=== PATIENT | female | born 1995 | race Caucasian/White ===

== ENCOUNTER → 2021-01-27 | Outpatient (CLI) | payer OTHER ==
[~2021-01-27] MED LIST: BUTA-198 PO; BUTA1TAB48 PO; ESCI10TA16 PO; IBUP-1022 PO; MELO15TA28 PO; ONDA8TAB10 PO; PANT40TA29 PO; TRAM50TA2 PO
[2021-01-27 16:00] LABS: BASO % 0.3 % (0.0-1.0); EOS % 0.2 % (0.0-3.0); HEMATOCRIT 44.2 % (36.0-47.0); HEMOGLOBIN 15.4 g/dl (12.0-15.5); LYMPH # 1.7 10^3/uL (1.5-5.0); LYMPH % 19.5 % (24.0-44.0); MEAN CORPUSCULAR HEMOGLOBIN 30.7 pg (27.0-33.0); MEAN CORPUSCULAR HGB CONC 34.8 g/dl (32.0-36.5); MEAN CORPUSCULAR VOLUME 88.2 fl (80.0-96.0); MONO # 0.4 10^3/uL (0.0-0.8); MONO % 4.4 % (2.0-8.0); NEUTROPHILS # 6.7 10^3/uL (1.5-8.5); NEUTROPHILS % 75.3 % (36.0-66.0); PLATELET COUNT, AUTOMATED 282 10^3/uL (150-450); RED BLOOD COUNT 5.01 10^6/uL (4.00-5.40); WHITE BLOOD COUNT 8.9 10^3/uL (4.0-10.0)
[2021-01-27 16:26] LABS: ALT/SGPT 31 U/L (12-78); BILIRUBIN,TOTAL 0.4 MG/DL (0.2-1.0); CREATININE FOR GFR 0.55 MG/DL (0.55-1.30); GLOMERULAR FILTRATION RATE > 60.0 (>60); GLUCOSE CHALLENGE TEST 1 HOUR 80 MG/DL (LESS THAN 140); LDH LACTATE DEHYDROGENASE 186 U/L (84-246); THYROID STIMULATING HORMONE 0.481 uIU/ML (0.358-3.740); URIC ACID 3.5 MG/DL (2.6-6.0)
[2021-01-27 16:55] LABS: TOTAL PROTEIN,RANDOM URINE 44.8 MG/DL (0.0-12.0)
[2021-01-27 17:05] LABS: HEPATITIS C VIRUS ABY INDEX < 0.0 INDEX (<0.8); HIV 1&2 SCREEN CENTAUR NEGATIVE (NEGATIVE)
[2021-01-27 17:21] LABS: GC DNA AMPLIFICATION NEGATIVE (NEGATIVE)
[2021-01-27 17:23] LABS: HEMOGLOBIN A1c 4.9 %
== END ==
LOC: M PLALAB 11:56
PROVIDERS: ATTEND Advanced Practice Midwife
DX: Z36.89 Encounter for other specified antenatal screening (principal); Z3A.11 11 weeks gestation of pregnancy

== ENCOUNTER → 2021-01-30 | Outpatient (REF) | payer OTHER | LOC: M SFHCWAGY 17:20 | PROVIDERS: ATTEND Advanced Practice Midwife | DX: O99.212 Obesity complicating pregnancy, second trimester (principal) ==

== ENCOUNTER → 2021-03-14 | Outpatient (CLI) | payer OTHER ==
--- NOTE | 2021-03-14 10:33 | REP ---
INDICATION: ANATOMY. COMPARISON: None. TECHNIQUE: Transabdominal scanning FINDINGS: Multiple ultrasonographic images of the gravid uterus shows a single living intrauterine gestation in variable positions. Doppler interrogation of the heart shows a heart rate of 153 beats per minute. The placenta is anterior and not low-lying. The cervix measures 3.8 cm in length and is closed. The subjective amniotic fluid volume is within normal limits. BPD: 5 cm 21 weeks 1 day HC: 19.3 cm 21 weeks 4 day AC: 15.8 cm 20 weeks 6 days FL: 3.9 cm 22 weeks 3 days The estimated weight is 434 g which is at the 44th percentile for a 21 week 4 day gestational age. anatomical structures seen to be unremarkable are as follows: Thalami, cavum septum pellucidum, cerebellum, cisterna magna, spine, urinary bladder, four-chamber heart, left ventricular outflow tract, stomach, and upper lip. Structures suboptimally visualized are as follows: Kidneys, cord insertion, three-vessel umbilical cord, right ventricular outflow tract, and extremities. IMPRESSION: Single living intrauterine gestation as described above with an estimated gestational age of 21 weeks 5 days via composite criteria and an estimated date of delivery of 07/20/2021 by today's exam. No anomalies were detected, however, I recommend a follow-up examination to better visualize those structures suboptimally seen today as described above. <Electronically signed by Jeremy Pires > 03/14/21 1590
== END ==
LOC: M WHC 08:31
PROVIDERS: ATTEND Advanced Practice Midwife
DX: Z36.3 Encounter for antenatal screening for malformations (principal); O99.212 Obesity complicating pregnancy, second trimester; Z3A.21 21 weeks gestation of pregnancy

== ENCOUNTER → 2021-06-10 | Outpatient (CLI) | payer OTHER ==
[2021-06-10 18:05] LABS: MEAN CORPUSCULAR HEMOGLOBIN 28.6 pg (27.0-33.0); MEAN CORPUSCULAR HGB CONC 32.4 g/dl (32.0-36.5); MEAN CORPUSCULAR VOLUME 88.3 fl (80.0-96.0); PLATELET COUNT, AUTOMATED 222 10^3/uL (150-450); RED BLOOD COUNT 4.19 10^6/uL (4.00-5.40); WHITE BLOOD COUNT 7.3 10^3/uL (4.0-10.0)
== END ==
LOC: M PLALAB 14:16
PROVIDERS: ATTEND Advanced Practice Midwife
DX: Z36.89 Encounter for other specified antenatal screening (principal); Z3A.24 24 weeks gestation of pregnancy

== ENCOUNTER → 2021-06-20 | Outpatient (CLI) | payer OTHER ==
[~2021-06-20] MED LIST changes: +ACET500T15 PO; +ESGI1CAP PO; +ONDA-84 PO; -ONDA8TAB10 PO; +PRENTAB9 PO; +SERT-141 PO
[2021-06-20 13:18] LABS: HEMATOCRIT 36.9 % (36.0-47.0); HEMOGLOBIN 12.1 g/dl (12.0-15.5); MEAN CORPUSCULAR HEMOGLOBIN 29.2 pg (27.0-33.0); MEAN CORPUSCULAR HGB CONC 32.8 g/dl (32.0-36.5); MEAN CORPUSCULAR VOLUME 89.1 fl (80.0-96.0); PLATELET COUNT, AUTOMATED 313 10^3/uL (150-450); RED BLOOD COUNT 4.14 10^6/uL (4.00-5.40); WHITE BLOOD COUNT 8.4 10^3/uL (4.0-10.0)
[2021-06-20 13:52] LABS: ALBUMIN 2.6 GM/DL (3.2-5.2); ALT/SGPT 27 U/L (12-78); BILIRUBIN,TOTAL 0.7 MG/DL (0.2-1.0); BLOOD UREA NITROGEN 6 MG/DL (7-18); CARBON DIOXIDE LEVEL 24 MEQ/L (21-32); CHLORIDE LEVEL 109 MEQ/L (98-107); CREATININE FOR GFR 0.68 MG/DL (0.55-1.30); GLOMERULAR FILTRATION RATE > 60.0 (>60); GLUCOSE, FASTING 76 MG/DL (70-100); POTASSIUM SERUM 4.5 MEQ/L (3.5-5.1); SODIUM LEVEL 140 MEQ/L (136-145)
[2021-06-20 14:05] LABS: TOTAL PROTEIN,RANDOM URINE 105.5 MG/DL (0.0-12.0)
== END ==
LOC: M PLALAB 10:54
PROVIDERS: ATTEND Obstetrics & Gynecology
DX: O16.3 Unspecified maternal hypertension, third trimester (principal); Z3A.00 Weeks of gestation of pregnancy not specified

== ENCOUNTER 2021-06-21 18:31 | Outpatient (CLI) | payer OTHER ==
[~2021-06-21] VITALS: Ht 160 cm; Wt 91.5 kg
[~2021-06-21 18:31] MED LIST changes: -ACET500T15 PO; -ESGI1CAP PO; -PRENTAB9 PO; -SERT-141 PO
[2021-06-21 18:58] VITALS: BP 140/77
[2021-06-21] MEDS ORDERED: ACET500T15 PO (19:06)
[2021-06-21] MEDS ORDERED: PRENTAB9 PO (19:06)
[2021-06-21] MEDS ORDERED: SERT-141 PO (19:08)
[2021-06-21] MEDS ORDERED: HOME MED LIST COMPLETE! XX SCH (19:10)
[2021-06-21 19:34] VITALS: BP 129/78
[2021-06-21] MEDS ORDERED: FIORICET TAB PO ONE (20:00)
[2021-06-21 20:10] VITALS: BP 133/71
[2021-06-21 20:15] LABS: HEMATOCRIT 34.6 % (36.0-47.0); HEMOGLOBIN 11.3 g/dl (12.0-15.5); MEAN CORPUSCULAR HEMOGLOBIN 28.5 pg (27.0-33.0); MEAN CORPUSCULAR HGB CONC 32.7 g/dl (32.0-36.5); MEAN CORPUSCULAR VOLUME 87.2 fl (80.0-96.0); PLATELET COUNT, AUTOMATED 290 10^3/uL (150-450); RED BLOOD COUNT 3.97 10^6/uL (4.00-5.40); WHITE BLOOD COUNT 7.7 10^3/uL (4.0-10.0)
[2021-06-21 20:41] VITALS: BP 115/62
[2021-06-21 20:49] LABS: ALBUMIN 2.4 GM/DL (3.2-5.2); ALT/SGPT 20 U/L (12-78); BILIRUBIN,TOTAL 0.6 MG/DL (0.2-1.0); BLOOD UREA NITROGEN 6 MG/DL (7-18); CALCIUM LEVEL 8.8 MG/DL (8.5-10.1); CARBON DIOXIDE LEVEL 24 MEQ/L (21-32); CHLORIDE LEVEL 107 MEQ/L (98-107); CREATININE FOR GFR 0.61 MG/DL (0.55-1.30); GLOMERULAR FILTRATION RATE > 60.0 (>60); GLUCOSE, FASTING 73 MG/DL (70-100); LDH LACTATE DEHYDROGENASE 194 U/L (84-246); POTASSIUM SERUM 4.6 MEQ/L (3.5-5.1); SODIUM LEVEL 140 MEQ/L (136-145); TOTAL PROTEIN 5.9 GM/DL (6.4-8.2); URIC ACID 4.9 MG/DL (2.6-6.0)
[2021-06-21] MEDS ORDERED: ESGI1CAP PO (21:18)
== END 2021-06-21 21:18 | disposition home or self-care (01) ==
LOC: M LDO 18:31
PROVIDERS: ATTEND Obstetrics & Gynecology
DX: O60.03 Preterm labor without delivery, third trimester (principal); O26.893 Other specified pregnancy related conditions, third trimester; R51.9 Headache, unspecified; Z3A.35 35 weeks gestation of pregnancy

== ENCOUNTER 2021-06-30 16:27 | Outpatient (CLI) | payer OTHER ==
[2021-06-30] VITALS (7 sets, daily range): BP systolic 101–141; BP diastolic 56–76
[~2021-06-30] VITALS: Ht 160 cm; Wt 90.6 kg
[~2021-06-30 16:27] MED LIST changes: +ACET500T15 PO; +ESGI1CAP PO; +PRENTAB9 PO; +SERT-141 PO
[2021-06-30] MEDS ORDERED: HOME MED LIST COMPLETE! XX SCH (18:45)
== END 2021-06-30 23:34 | disposition home or self-care (01) ==
LOC: M LDO 16:27
PROVIDERS: ATTEND Advanced Practice Midwife
DX: O60.03 Preterm labor without delivery, third trimester (principal); O99.343 Other mental disorders complicating pregnancy, third trimester; F32.A Depression, unspecified; F41.9 Anxiety disorder, unspecified; Z3A.37 37 weeks gestation of pregnancy

== ENCOUNTER 2021-07-05 21:36 | Outpatient (CLI) | payer OTHER ==
[~2021-07-05] VITALS: Ht 160 cm; Wt 91.0 kg
[2021-07-05 21:57] VITALS: BP 166/98
[2021-07-05] MEDS ORDERED: HOME MED LIST COMPLETE! XX SCH (22:05)
[2021-07-05 22:13] VITALS: BP 176/85
[2021-07-05 22:42] VITALS: BP 111/73
[2021-07-05 22:51] LABS: CREATININE,RANDOM URINE 84.4 MG/DL; TOTAL PROTEIN,RANDOM URINE 27.4 MG/DL (0.0-12.0)
[2021-07-05 23:02] VITALS: BP 144/79
[2021-07-05 23:13] LABS: HEMATOCRIT 34.3 % (36.0-47.0); HEMOGLOBIN 11.1 g/dl (12.0-15.5); MEAN CORPUSCULAR HEMOGLOBIN 27.2 pg (27.0-33.0); MEAN CORPUSCULAR HGB CONC 32.4 g/dl (32.0-36.5); MEAN CORPUSCULAR VOLUME 84.1 fl (80.0-96.0); PLATELET COUNT, AUTOMATED 260 10^3/uL (150-450); RED BLOOD COUNT 4.08 10^6/uL (4.00-5.40); WHITE BLOOD COUNT 10.2 10^3/uL (4.0-10.0)
[2021-07-05 23:28] LABS: ALT/SGPT 14 U/L (12-78); BILIRUBIN,TOTAL 0.3 MG/DL (0.2-1.0); CREATININE FOR GFR 0.61 MG/DL (0.55-1.30); GLOMERULAR FILTRATION RATE > 60.0 (>60); LDH LACTATE DEHYDROGENASE 190 U/L (84-246); URIC ACID 5.7 MG/DL (2.6-6.0)
[2021-07-05 23:30] VITALS: BP 125/81
[2021-07-05 23:46] VITALS: BP 134/85
[2021-07-06] MEDS ORDERED: CALCIUM CARBONATE 500 MG CHEW U/D PO ONE
[2021-07-06 00:01] VITALS: BP 142/80
[2021-07-06 00:15] VITALS: BP 136/81
[2021-07-06 00:30] VITALS: BP 132/73
[2021-07-06 00:45] VITALS: BP 131/81
== END 2021-07-06 01:10 | disposition home or self-care (01) ==
LOC: M LDO 21:36
PROVIDERS: ATTEND Obstetrics & Gynecology
DX: O47.1 False labor at or after 37 completed weeks of gestation (principal); Z3A.37 37 weeks gestation of pregnancy; O26.893 Other specified pregnancy related conditions, third trimester; R03.0 Elevated blood-pressure reading, without diagnosis of hypertension; Z88.2 Allergy status to sulfonamides

== ENCOUNTER → 2021-07-11 | Outpatient (REF) | payer OTHER | LOC: M SFHCWAGY 14:36 | PROVIDERS: ATTEND Advanced Practice Midwife | DX: R39.11 Hesitancy of micturition (principal); R10.9 Unspecified abdominal pain ==

== ENCOUNTER 2021-07-15 18:34 | Inpatient (IN) | payer OTHER ==
[2021-07-15] VITALS (9 sets, daily range): BP systolic 102–149; BP diastolic 61–98
[~2021-07-15] VITALS: Ht 160 cm; Wt 91.8 kg
[2021-07-15] MEDS ORDERED: HOME MED LIST COMPLETE! XX SCH (19:05)
[2021-07-15] MEDS ORDERED: miSOPROStol 50MCG 1/2 TABLET PO SCH (19:30)
[2021-07-15] MEDS ORDERED: LIDOCAINE 1% MDV 20ML VIAL INFIL PRN (19:30)
[2021-07-15] MEDS ORDERED: METHYLERGONOVINE MALEATE 0.2 MG/ML VIAL (J2210) IM PRN (19:30)
[2021-07-15] MEDS ORDERED: CARBOPROST TROMETHAMINE 250 MCG/ML AMP IM PRN (19:30)
[2021-07-15] MEDS ORDERED: OXYTOCIN DRIP 30 UNITS in IV 1 EA IV PRN (19:30)
[2021-07-15] MEDS ORDERED: TRANEXAMIC ACID INJection 1,000 MG in NS 100 ML IV PRN (19:30)
[2021-07-15 20:13] LABS: HEMATOCRIT 35.4 % (36.0-47.0); HEMOGLOBIN 11.6 g/dl (12.0-15.5); MEAN CORPUSCULAR HEMOGLOBIN 26.7 pg (27.0-33.0); MEAN CORPUSCULAR HGB CONC 32.8 g/dl (32.0-36.5); MEAN CORPUSCULAR VOLUME 81.4 fl (80.0-96.0); PLATELET COUNT, AUTOMATED 266 10^3/uL (150-450); RED BLOOD COUNT 4.35 10^6/uL (4.00-5.40); WHITE BLOOD COUNT 12.3 10^3/uL (4.0-10.0)
[2021-07-15] MEDS: ONDANSETRON 4MG/2ML VIAL IV PRN (20:16)
[2021-07-15 20:35] LABS: TOTAL PROTEIN,RANDOM URINE 79.5 MG/DL (0.0-12.0)
[2021-07-15 20:46] LABS: ALT/SGPT 13 U/L (12-78); BILIRUBIN,TOTAL 0.4 MG/DL (0.2-1.0); CREATININE FOR GFR 0.75 MG/DL (0.55-1.30); GLOMERULAR FILTRATION RATE > 60.0 (>60); LDH LACTATE DEHYDROGENASE 219 U/L (84-246)
[2021-07-16] VITALS (54 sets, daily range): BP systolic 81–144; BP diastolic 48–92
[2021-07-16] MEDS ORDERED: OXYTOCIN DRIP 30 UNITS in IV 1 EA IV SCH (00:35)
[2021-07-16] MEDS: LR 1,000 ML IV SCH ×4 (00:57→11:09)
[2021-07-16] MEDS ORDERED: ACETAMINOPHEN 500 MG TAB PO PRN ×2 (01:55→14:00)
[2021-07-16] MEDS ORDERED: FENTANYL 2MCG/ML ROPIVACAINE 0.2% IN 0.9% NACL 100ML IVBAG As Ordered ONE (03:01)
[2021-07-16] MEDS ORDERED: ONDANSETRON 4MG/2ML VIAL IV PRN (03:25)
[2021-07-16] MEDS ORDERED: EPIDURAL COMMENT XX SCH (03:25)
[2021-07-16] MEDS ORDERED: LACTATED RINGER'S 1000 ML IV PRN (03:25)
[2021-07-16] MEDS ORDERED: EPIDURAL/PCA KEYS XX PRN (03:25)
[2021-07-16] MEDS ORDERED: NALOXONE INJ 0.4MG/1ML VIAL (J2310 PER 1MG) IV PRN (03:25)
[2021-07-16] MEDS ORDERED: REFRIGERATOR IV KEYS XX PRN (03:25)
[2021-07-16] MEDS ORDERED: ePHEDrine SULFATE 25 MG/5 ML(5MG/ML) SYRINGE IV PRN (03:25)
[2021-07-16] MEDS ORDERED: diphenhydrAMINE 50MG/ML VIAL (J1200) IV PRN (03:25)
[2021-07-16] MEDS: FENTANYL/ROPIVACAINE/NACL BAG 100 ML EPIDURAL SCH ×2 (03:42→12:21)
[2021-07-16] MEDS: ONDANSETRON 4MG/2ML VIAL IV PRN (03:59)
[2021-07-16] MEDS: PRENATAL VITAMINS CHEWABLE TABLET PO SCH (09:00)
[2021-07-16] MEDS ORDERED: IBUPROFEN 600MG TAB PO PRN (14:00)
[2021-07-16] MEDS ORDERED: MEASLES,MUMPS,RUBELLA VACCINE INJ (MMR-II) (90707) SC SCH (14:00)
[2021-07-16] MEDS ORDERED: DIBUCAINE 1% OINTMENT 30GM TOP PRN (14:00)
[2021-07-16] MEDS ORDERED: RHOGAM 300 MCG (1500 IU) INJ (J2790) IM SCH (14:00)
[2021-07-16] MEDS ORDERED: ACETAMINOPHEN TAB 650MG DOSE (2X325MG) PO PRN (14:00)
[2021-07-16] MEDS ORDERED: DOCUSATE SODIUM 100MG CAPSULE PO PRN (14:00)
[2021-07-16] MEDS: IBUPROFEN 800 MG TAB PO PRN (16:23)
[2021-07-17 06:08] VITALS: BP 135/82
[2021-07-17] MEDS: PRENATAL VITAMINS CHEWABLE TABLET PO SCH (09:06)
[2021-07-17 18:04] VITALS: BP 117/64
[2021-07-17] MEDS: IBUPROFEN 800 MG TAB PO PRN (22:30)
[2021-07-18 05:49] VITALS: BP 126/74
[2021-07-18] MEDS: PRENATAL VITAMINS CHEWABLE TABLET PO SCH (09:00)
== END 2021-07-18 12:52 | disposition home or self-care (01) | DRG 560 ==
LOC: M LDO 18:34 → M LDI 19:22 → M OBS 07-16 15:40
PROVIDERS: ADMIT Obstetrics & Gynecology; ATTEND Advanced Practice Midwife
PROC: 3E0P7GC Introduction of Other Therapeutic Substance into Female Reproductive, Via Natural or Artificial Opening (ICD-10-PCS; 2021-07-15)
PROC: 10E0XZZ Delivery of Products of Conception, External Approach (ICD-10-PCS; principal; 2021-07-16)
PROC: 10907ZC Drainage of Amniotic Fluid, Therapeutic from Products of Conception, Via Natural or Artificial Opening (ICD-10-PCS; 2021-07-16)
DX: O14.94 Unspecified pre-eclampsia, complicating childbirth (principal); O69.81X0 Labor and delivery complicated by cord around neck, without compression, not applicable or unspecified; Z3A.39 39 weeks gestation of pregnancy; Z37.0 Single live birth

== ENCOUNTER → 2025-02-26 | Outpatient (CLI) | payer OTHER ==
[~2025-02-26] MED LIST changes: -IBUP-1022 PO; +IBUP600T42 PO
== END ==
LOC: M PLAIMG 11:41
PROVIDERS: ATTEND Nurse Practitioner Family
DX: K59.00 Constipation, unspecified (principal); R10.2 Pelvic and perineal pain